=== PATIENT | male | born 2000 | race Caucasian/White ===

== ENCOUNTER 2021-09-12 15:11 | Emergency (ER) | payer MEDICAID ==
[~2021-09-12] VITALS: Ht 167.6 cm; Wt 68.2 kg
[2021-09-12 15:22] VITALS: BP 134/76
[2021-09-12] MEDS ORDERED: ketorolac trometh inj. 60 MG/2 ML VIAL IM ONE (17:15)
[2021-09-12] MEDS ORDERED: CYCL-1 PO (17:22)
== END 2021-09-12 17:37 | disposition home or self-care (01) ==
LOC: ER 15:14
DX: S39.012A Strain of muscle, fascia and tendon of lower back, initial encounter (principal); F17.200 Nicotine dependence, unspecified, uncomplicated; X50.0XXA Overexertion from strenuous movement or load, initial encounter; Y93.89 Activity, other specified; Y92.89 Other specified places as the place of occurrence of the external cause; Y99.8 Other external cause status
CPT/HCPCS: 96372; 99283; J1885